=== PATIENT | female | born 1950 | race Caucasian/White ===

== ENCOUNTER → 2019-09-13 09:17 | Outpatient (CLI) | payer MEDICARE, OTHER, SELFPAY ==
--- NOTE | ~2019-09-13 | MR_ITS ---
EXAMINATION: MR ankle RT wo con DATE: 09/13/2019 10:19 INDICATION: Right anterior tibialis tendinitis. Right foot and ankle pain and swelling. TECHNIQUE: Magnetic resonance imaging (MRI) of the right ankle was performed without intravenous cont rast. Sequences included sagittal PD-weighted FS FSE, sagittal PD-weighted FSE, coronal PD-weighted F S FSE, coronal PD-weighted FSE, axial PD-weighted FS FSE, and axial PD-weighted FSE. COMPARISON: None. FINDINGS: Medial ankle ligaments: The superficial and deep components of the deltoid ligament are normal. Lateral ankle ligaments: The anterior and posterior talofibular ligaments, calcaneofibular ligament, and anterior and posterio r tibiofibular ligaments are normal. Tendons: There is mild peroneus longus tendinopathy. The anterior and medial ankle tendons are normal. Trixie s tendon is normal. Plantar fascia: There is mild thickening of the central band of plantar fascia that may be fibromatosis or mild fasci itis. There is an enthesophyte at the calcaneal attachment. Bones/other: Bone alignment is normal. No fracture. Talar dome is normal. There is severe osteoarthritis of medial naviculocuneiform joint and second, third, and fourth tarsometatarsal joints. There is mild osteoart hritis of talonavicular joint and calcaneocuboid joint. Lisfranc ligament demonstrates changes of latha or sprain characterized by increased signal intensity. Fluid: There is no joint effusion. There is subcutaneous edema of the foot and ankle. IMPRESSION: 1. Severe midfoot osteoarthritis. 2. Normal tibialis anterior tendon. Reviewed, dictated and finalized at location A.
== END ==
DX: M76.811 Anterior tibial syndrome, right leg (principal); M19.071 Primary osteoarthritis, right ankle and foot
CPT/HCPCS: 73721

== ENCOUNTER → 2021-07-15 10:49 | Outpatient (CLI) | payer MEDICARE, OTHER, SELFPAY ==
--- NOTE | ~2021-07-15 | XR_ITS ---
EXAMINATION: XR chest 2V DATE: 07/15/2021 11:21 INDICATION: Cough TECHNIQUE: frontal view of the chest was obtained. COMPARISON: None FINDINGS: The lungs are clear with no focal airspace opacities, pulmonary edema, pleural effusion or pneumothor ax. The cardiomediastinal silhouette is normal. Moderate thoracic spondylosis. IMPRESSION: 1. No acute cardiopulmonary disease. Reviewed, dictated and finalized at location B.
== END ==
PROVIDERS: PCP Internal Medicine; Visit Provider Internal Medicine
DX: R05.9 Cough, unspecified (principal)
CPT/HCPCS: 71046

== ENCOUNTER → 2021-08-27 13:52 | Outpatient (CLI) | payer MEDICARE, OTHER, SELFPAY ==
--- NOTE | ~2021-08-27 | XR_ITS ---
XR chest 2V 08/27/2021 14:03 Indication: Cough. Bronchitis. Procedure: 2 view chest Comparison: No prior studies for comparison. Findings: Heart size normal. No focal air space disease, pulmonary edema, pleural effusion or suspect ed pneumothorax. No acute osseous abnormality. Impression: 1: No acute cardiopulmonary disease. Reviewed, dictated and finalized at location A. Impression: 1: No acute cardiopulmonary disease.
== END ==
PROVIDERS: PCP Internal Medicine; Visit Provider Internal Medicine
DX: R05.9 Cough, unspecified (principal); J40 Bronchitis, not specified as acute or chronic
CPT/HCPCS: 71046